=== PATIENT | female | born 1985 | race Caucasian/White ===

== ENCOUNTER 2017-12-23 23:10 | Emergency (ER) | payer OTHER ==
[~2017-12-23] VITALS: Ht 172.7 cm; Wt 65.8 kg
[~2017-12-23 23:10] MED LIST: AMOXICILLIN875 MG PO; CIPRO500 MG PO; PRENATAL TABLE1 EAC1 PO
[2017-12-23] MEDS ORDERED: PENICILLIN V P500 MG PO (23:27)
== END 2017-12-23 23:44 | disposition home or self-care (01) ==
LOC: ED 23:10
DX: K02.9 Dental caries, unspecified (principal); Z87.891 Personal history of nicotine dependence; Z88.8 Allergy status to other drugs, medicaments and biological substances; Z79.899 Other long term (current) drug therapy
CPT/HCPCS: 99283

== ENCOUNTER 2018-01-21 05:45 | Day surgery (SDC) | payer OTHER ==
[~2018-01-21] VITALS: Ht 172.7 cm; Wt 64.4 kg
[~2018-01-21 05:45] MED LIST changes: +PENICILLIN V P500 MG PO
[2018-01-21] MEDS ORDERED: ULTRAM50 MG PO (06:00)
[2018-01-21] MEDS ORDERED: ACETAMINOPHEN500 MG PO (06:00)
[2018-01-21] MEDS ORDERED: NORCO 5-325 TA1 EACH PO (14:56)
[2018-01-21] MEDS ORDERED: IBUPROFEN800 MG PO (14:58)
--- NOTE | 2018-01-27 14:16 | OR ---
[facility] [address] [place], [place] [address] Signed DATE OF OPERATION: 01/21/2018 SURGEON: Raymond Varghese MD PRIMARY CARE PROVIDER: HERBER Cohn PREOPERATIVE DIAGNOSES: Pelvic pain, bilateral adnexal masses, and HSIL on Pap. POSTOPERATIVE DIAGNOSES: Endometriosis of peritoneum, pelvic pain, and HSIL on Pap. PROCEDURE: Laparoscopic excision of endometriosis and LEEP. STEAM SHOVEL OILER: Dr. Hawley. ANESTHESIA: General. ESTIMATED BLOOD LOSS: 50 mL. SPECIMEN: Peritoneal endometriosis, cervix in two portions left and right, endocervix and ECC. DRAINS: None. FINDINGS: Cervix normal size and shape with evidence of previous LEEP, round irregular-appearing tissue around os, but no aceto-white lesions seen. There was IUD string coming from the cervical os. Uterus normal size and shape without any evidence endometriosis or adhesions. The anterior cul-de-sac was free of any endometriosis or adhesions. The posterior cul-de-sac had three small areas of endometriosis, one on the right side just medial to the uterosacral ligament, one on the left on the uterosacral ligament and one on the left just lateral to the uterosacral ligament, but well below the ureter. There are no adhesions noted. The left tube was normal length and normal pink fimbriated end. Electronically Signed By: RAYMOND VARGHESE MD 01/27/18 1416 PATIENT NAME: HENRI[place] LAKE OPERATIVE REPORT DATE OF : 87 REPORT #: [id number] PHYSICIAN: RAYMOND VARGHESE MD PCP: ASHANTI SALMERON REPORT IS CONFIDENTIAL AND NOT TO BE RELEASED WITHOUT AUTHORIZATION [facility] [address], [place] [address] Signed The left ovary is normal in size. It was rather elongated in shape. There was a small corpus luteum cyst. No large cysts. No evidence of endometriosis or adhesions. The left tube was normal length and normal-appearing fimbriated end. The right tube was normal length and normal pink fimbriated end. No adhesions. Right ovary is normal in size, again rather elongated in shape, but no masses, no adhesions and no cysts noted, except for normal functional cyst. The rest of the pelvis was free of any masses or adhesions. The appendix appeared to be retrocecal, otherwise normal. The liver and gallbladder also appeared normal. DESCRIPTION OF PROCEDURE: The patient was brought to the operating room and placed supine position. After adequate general anesthesia was obtained, was placed in dorsal lithotomy position and prepped and draped in usual sterile fashion. Masters catheter was placed in the bladder. It was decided not to put uterine manipulator in since she already had an IUD in place, did not want to disrupt that and also planning on doing a LEEP, so we did not want to cause any disruption of the cervix for the colposcopy. Attention was then drawn to the abdomen. A small infraumbilical skin incision was made with a scalpel after injecting the area with 0.5% plain Marcaine. Subcutaneous tissue was dissected with Metzenbaum scissors. The fascia identified, grasped with hemostats, elevated, nicked with Metzenbaum scissors and extended in transverse fashion using Metzenbaum scissors. Retention stitches of 0 Vicryl suture placed above and below the incision. The peritoneum was then opened with blunt dissection. The Isma cannula and sleeve then entered the abdomen. Under direct visualization the sleeve balloon was filled and then the sleeve attached and held in place with the retention stitches. Trocar was removed and laparoscope with video attachment entered the abdomen under direct visualization. In the left lower quadrant, a small skin incision was made laterally after transilluminating the area and skin to avoid any vessels. The skin was injected with 0.5% plain Marcaine and then a small skin incision was made with a scalpel and a bladed 5-mm trocar and sleeve entered the abdomen under direct visualization. This also had a balloon on the sleeve, which was filled to hold the sleeve in place. Trocar was removed and the blunt grasper inserted. The same procedure was done on the right side. Transilluminating injecting with local making a small skin incision, and in placing the bladed trocar and sleeve. Under direct visualization. Removed the trocar filling the balloon to hold. The intraabdominal balloon to hold the sleeve in place. Blunt graspers inserted on this side also the above findings were noted. Both ovaries were carefully examined. Did not seem to be any evidence of dermoid or hemorrhagic cyst and no large cyst noted, so decided not to do any further surgery on the ovaries. Three small endometrial implants were noted. Since this was the area noted on pelvic exam to be causing pain. We decided to remove these. Maryland forceps were used to grasp the peritoneum. After identifying the ureter to make sure the endometrial implants were away from the ureter. The perineum Electronically Signed By: RAYMOND VARGHESE MD 01/27/18 1416 PATIENT NAME: H[place]RI[place] LA[place] OPERATIVE REPORT DATE OF : 87 REPORT #: [id number] PHYSICIAN: RAYMOND VARGHESE MD PCP: ASHANTI SALMERON REPORT IS CONFIDENTIAL AND NOT TO BE RELEASED WITHOUT AUTHORIZATION [facility] [address], [place] [address] Signed right adjacent to the implant was grasped and pulled medially and laparoscopic scissors then used to open the peritoneum and bluntly dissecting the peritoneum and endometriosis free from the pelvic sidewall and once this was free the peritoneum around the endometrial implant was excised removing the endometrial implant. The endometrial implant was then removed through the 5 mm sleeve. The same procedure was carried out for all three peritoneal implants. The entire pelvis was then irrigated, suctioned, and examined. There was one very small bleeding spot on the left upper peritoneal implant. Again, the ureter was identified and noted to be well away, so the Maryland forceps with Bovie attachment used to gently and superficially cauterized the one small vessel and this was done very small controlled area and this seemed to control the bleeding. The pelvis was again irrigated, suctioned, examined and noted to have good hemostasis. Evicel was then placed in the three biopsy sites to further help with hemostasis. The gas was allowed to escape and the three sites examined under low pressure. Noted continue to have good hemostasis. At this point, all the gas was removed and all three sleeves removed. The infraumbilical fascia was closed using running stitch of 0 Vicryl suture. The two retention stitches tied together for further support and the three skin incisions were closed using subcuticular stitches of 4-0 Vicryl suture. The colposcope was then set up. A coated speculum was placed in the vagina and the cervix identified. Under colposcopic visualization, acetic acid was placed all of the cervix and no aceto-white lesions were seen. Lugol solution was then carefully painted around the cervix and no nonstaining areas seen. A wood tongue blade was then split in half lengthwise and the tip placed in the canal to protect the IUD strings and the loop electrode used and blended current to cut the previous endocervical to cut lateral to the previous biopsy site and towards the middle on the left side up to the wooden tongue blade and this specimen removed. Same thing was done on the right. Again with removing the IUD strings out of the way. This was done in attempt to keep from cutting the IUD string. This entire cervical portion removed in two sections left and right. Same thing was done with the endocervix with a 10 mm loop and again trying to avoid cutting the strings. One of the strings was inadvertently cut, but the other one still there, but on removal of the endocervical specimen, the IUD did slide half way out since it was partially out of the cervix now the IUD was completely removed. This specimen was sent off and then an endocervical curette was done to get specimen on the remaining endocervical tissue. At this point, there was minimal bleeding and a ball electrode used with coag current and the entire biopsy site cauterized when this good hemostasis was noted throughout and so Monsel's solution was put in the biopsy site for further help with hemostasis. At this point, all instruments removed from the vagina and the Masters catheter removed. The patient tolerated the procedure well, went to recovery room in good condition. The sponge, needle, and instrument count correct at the end of procedure. The peritoneal endometriosis and the two cervix specimens, one endocervical specimen and the ECC were all sent to Pathology for identification. Electronically Signed By: RAYMOND VARGHESE MD 01/27/18 1416 PATIENT NAME: [place] OPERATIVE REPORT DATE OF : 87 REPORT #: [id number] PHYSICIAN: RAYMOND VARGHESE MD PCP: ASHANTI SALMERON REPORT IS CONFIDENTIAL AND NOT TO BE RELEASED WITHOUT AUTHORIZATION [facility] [address] [place], [place] [address] Signed Raymond Varghese MD MJB/MODL /[id number] cc: HERBER Cohn Copies: ASHANTI SALMERON ~ Electronically Signed By: RAYMOND VARGHESE MD 01/27/18 1416 PATIENT NAME: HEN[place] LA[place] OPERATIVE REPORT DATE OF : 87 REPORT #: [id number] PHYSICIAN: RAYMOND VARGHESE MD PCP: ASHANTI SALMERON REPORT IS CONFIDENTIAL AND NOT TO BE RELEASED WITHOUT AUTHORIZATION
== END 2018-01-21 16:45 | disposition home or self-care (01) ==
LOC: DS 05:45 → OPS 05:45
PROVIDERS: General Practice
PROC: 0UBC8ZZ Excision of Cervix, Via Natural or Artificial Opening Endoscopic (ICD-10-PCS; principal; 2018-01-21 06:45)
PROC: 0DBW4ZZ Excision of Peritoneum, Percutaneous Endoscopic Approach (ICD-10-PCS; 2018-01-21 06:45)
DX: D06.9 Carcinoma in situ of cervix, unspecified (principal); N80.3 Endometriosis of pelvic peritoneum; G89.29 Other chronic pain; M54.9 Dorsalgia, unspecified; M53.3 Sacrococcygeal disorders, not elsewhere classified; Z98.890 Other specified postprocedural states; Z87.891 Personal history of nicotine dependence; Z88.6 Allergy status to analgesic agent
CPT/HCPCS: 00840; 71045; J0330; J0780; J1100; J1720; J1885; J2250; J2405; J2704; J2710; J2765; J3010; J7120

== ENCOUNTER 2022-07-02 09:31 | Emergency (ER) | payer BC, OTHER ==
[~2022-07-02] VITALS: Ht 172.7 cm; Wt 71.2 kg
[~2022-07-02 09:31] MED LIST changes: +ACETAMINOPHEN500 MG PO; +IBUPROFEN800 MG PO; +IMITREX25 MG PO; +MOTRIN IB200 MG PO; +NORCO 5-325 TA1 EACH PO; +PERCOCET 5-3251 EACH PO; +TRAZODONE HCL50 MG PO; +ULTRAM50 MG PO
--- OUTSIDE RECORDS SUMMARY | 2022-07-02 09:34 | XMS ---
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 EJessica VISIT COUNT (12 MO.) 1 SID[facility] [place] TOTAL 1 NOTE: Visits indicate total known visits. ED/UCC VISIT TRACKING (12 MO.) 07/02/2022 09:32 [facility] OR TYPE: Emergency COMPLAINT: - SORE THROAT INPATIENT VISIT TRACKING (12 MO.) No inpatient visits to display in this time frame [email or web address]
[2022-07-02] MEDS ORDERED: BUSPIRONE HCL7.5 MG PO (09:50)
[2022-07-02] MEDS ORDERED: PENICILLIN V P500 MG PO (10:07)
== END 2022-07-02 10:52 | disposition home or self-care (01) ==
LOC: ED 09:31
DX: J02.9 Acute pharyngitis, unspecified (principal); Z87.891 Personal history of nicotine dependence; Z88.6 Allergy status to analgesic agent; Z88.8 Allergy status to other drugs, medicaments and biological substances; Z79.899 Other long term (current) drug therapy
CPT/HCPCS: 99282; A9270; J8540

== ENCOUNTER 2025-07-06 10:00 | Day surgery (SDC) | payer OTHER ==
[~2025-07-06] VITALS: Ht 172.7 cm; Wt 80.0 kg
[~2025-07-06 10:00] MED LIST changes: +AIMOVIG AU70 MG/1 ML SUB-Q; +BUSPIRONE HCL7.5 MG PO; +IBLOOD GLUCOSE TEST STRIP 1 EA TEST VI PRN; +LACTATED RINGER'S 1,000 ML IV SCH; +LEXAPRO10 MG PO; +LIDOCAINE HCL 1% 5 ML SDV INJ ONE; +VENTOLIN HFA18 GM INH; +VITAMIN B-12100 MCG PO
[2025-07-06 10:21] VITALS: BP 92/54
[2025-07-06] MEDS ORDERED: LIDOCAINE HCL 2% 5 ML SDV ONE (11:14)
[2025-07-06] MEDS ORDERED: KETAMINE in NS 50 MG/5 ML SYR ONE (12:24)
--- NOTE | 2025-07-06 13:06 | NUR ---
07/06/25 1306 Bernice Burdick 1248-PATIENT ARRIVED TO PACU ON 2L NC RR EVEN. PATIENT REACTIVE TO VERBAL STIMULI VERY DROWSY LAYING LEFT LATERAL ABDOMEN SOFT. PATIENT REPORTING COLD WARM BLANKET APPLIED. SINUS BRADYCARDIA TO SR HR 50'S-60'S. IVF INFUSING. 1300-PATIENT COLD WARM BLANKET PROVIDED ENCOURAGED TO PASS GAS REPORTS "CRAMPY" PATIENT DOES PASS GAS REPORTS "ITS HARD TO OPEN MY EYES" ENCOURAGED PATIENT TO REST. 2L NC 98% RR EVEN. 1305-PER DR. AYALA PATIENT WILL NEED TO REDO A COLONOSCOPY WITHIN A YEAR AND DO A BOWEL PREP. PATIENT RESTING WITH EYES CLOSED. PLACED ON RA 98% RR EVEN.
[2025-07-06 13:44] VITALS: BP 104/62
== END 2025-07-06 13:50 | disposition home or self-care (01) ==
LOC: DS 10:00 → OPS 10:00 → DS 10:30 → OPS 12:00 → DS 12:10 → OPS 12:10
PROVIDERS: ATTEND Surgery
PROC: 0DJD8ZZ Inspection of Lower Intestinal Tract, Via Natural or Artificial Opening Endoscopic (ICD-10-PCS; principal; 2025-07-06 12:00)
DX: K92.1 Melena (principal); R10.9 Unspecified abdominal pain; Z80.0 Family history of malignant neoplasm of digestive organs; Z88.8 Allergy status to other drugs, medicaments and biological substances; Z87.891 Personal history of nicotine dependence
CPT/HCPCS: 00811; J2003; J2405; J2704; J3490; J7121